=== PATIENT | female | born 1945 | race Caucasian/White ===

== ENCOUNTER 2016-12-01 12:16 | Inpatient (IN) | payer MEDICARE, OTHER ==
[2016-12-01] VITALS (17 sets, daily range): BP systolic 113–183; BP diastolic 38–73; PULSE 73–83; RESP 12–20; Ht 157.5 cm; Wt 82.7 kg
[~2016-12-01] VITALS: Ht 157.5 cm; Wt 82.7 kg
[~2016-12-01 12:16] MED LIST: IBUP400T22 PO
[2016-12-01] MEDS ORDERED: IODIXANOL LOCM 100 ML BTL ONE ×2 (13:05→14:13)
[2016-12-01] MEDS ORDERED: FENTAnyl 50 MCG/ML VIAL ONE (13:05)
[2016-12-01] MEDS ORDERED: HEPARIN 1000 UNITS/NS (A-LINE) 1,000 ML ONE (13:05)
[2016-12-01] MEDS ORDERED: MIDAZOLAM 1 MG/ML 2 ML INJ ONE (13:05)
[2016-12-01] MEDS ORDERED: LIDOCAINE 1% (MDV) 20 ML INJ ONE (13:05)
[2016-12-01] MEDS ORDERED: NITROGLYCERIN (IC) 100 MCG/ML INJ ONE (13:05)
[2016-12-01] MEDS ORDERED: HEPARIN 1000 UNITS/ML 10 ML INJ ONE (13:05)
[2016-12-01] MEDS ORDERED: VERAPAMIL 5 MG INJ ONE (13:05)
[2016-12-01] MEDS ORDERED: NIT1OI2 TD (13:36)
[2016-12-01] MEDS ORDERED: ATOR10TA65 PO (13:36)
[2016-12-01] MEDS ORDERED: HYDR-3672 PO (13:36)
[2016-12-01] MEDS ORDERED: ASPI81TA3 PO (13:36)
[2016-12-01] MEDS ORDERED: ONDA4SOL2 IV* (13:36)
[2016-12-01] MEDS ORDERED: CARV25TA79 PO (13:36)
[2016-12-01] MEDS ORDERED: LEVO125T75 PO (13:36)
[2016-12-01] MEDS ORDERED: CLOPIDOGREL 300 MG TAB ONE (14:01)
[2016-12-01] MEDS ORDERED: ASPIRIN 81 MG TAB ONE (14:01)
[2016-12-01] MEDS ORDERED: IOHEXOL 350MG/ML 50 ML BTL ONE (14:08)
[2016-12-01] MEDS ORDERED: BIVALIRUDIN 250MG /NS 50 ML 50 ML IVPB ONE (14:08)
[2016-12-01] MEDS ORDERED: SOD CHLORIDE 0.9% 1,000 ML IV SCH (14:36)
[2016-12-01] MEDS ORDERED: ONDANSETRON 4 MG INJ IV PRN (15:00)
[2016-12-01] MEDS ORDERED: hydrALAzine 20 MG INJ IV PRN (15:00)
[2016-12-01] MEDS ORDERED: morphine 2 MG INJ IV PRN (15:00)
[2016-12-01] MEDS ORDERED: ACETAMINOPHEN 325 MG TAB PO PRN (15:00)
[2016-12-01] MEDS ORDERED: HOLD all METFORMIN and METFORMIN CONTAINING medications for 48 hours post procedure. Chec XX ONE (15:00)
--- NOTE | 2016-12-01 15:12 | OPR ---
Date/Time of Note Date/Time of Note DATE: 12/01/16 TIME: 15:12 Operative Report Free Text/Dictation Procedure Date: 12/01/2016 Procedures Performed: 1)Left heart catheterization with selective left and right coronary angiography. 2)Balloon angioplasty and stenting of the mid RCA with a [place] 2.5 x 15 stent. Pre-operative Diagnosis:NSTEMI, CHF, CKD Post-operative Diagnosis:same, s/p PCI of RCA Indications:71 yo F with DM, HTN, HL, CKD, presenting with SOB and was found to have CHF and NSTEMI (trop 3). Cardiac cath for evaluation. Description of Procedure: After informed consent, the patient was brought to the cardiac catheterization lab. The procedure site was prepped and draped in usual manner. The patient was premedicated with versed 1 mg and fentanyl 25 mcg. 3mL lidocaine was injected into the left wrist. Next using the posterior wall technique, the 6/5 icelandic sheath was inserted into the left radial artery. Next using the JL3.0 and JR4, selective angiography of the left and right coronary arteries were obtained. The decision was made to proceed with PCI of the RCA. A 6 icelandic JR3.5 with side holes guide was advanced and engaged into the right coronary artery. After appropriate anticoagulation and antiplatelets were given, the PT 2 LS angioplasty wire was advanced past the lesion. Next the 2.0 X 12 balloon was used to dilate the lesion times 1 at a maximum of 10 ben. Subsequently, the Vijay 2.5 x 15 stent was advanced to the lesion and deployed at 12 ben. Next the stent was post dilated with the 2.75 X 8 noncompliant balloon times 3 at a maximum of 14 ben. Final angiography revealed YOSVANY 3 flow, no edge dissection, and appropriate stent expansion. Next all equipment was removed and hemostasis was achieved by TR band. Findings: Anatomy/Hemodynamics: Left main:luminal irregularities LAD:luminal irregularities Diagonal:luminal irregularities Circumflex:luminal irregularities Obtuse marginal:luminal irregularities RCA: mid 90% PDA:luminal irregularities PLV:luminal irregularities LV angiography:not done due to elevated LV-Ao: no gradient LVEDP: 10mmHg Contrast used: 80mL Medications used: Versed 1mg Fentanyl 50 radial cocktail including 2000 units heparin, 200 NTG, 2.5 verapamil ASA 162mg plavix 600mg angiomax bolus plus drip NTG intrasheath for spasm Equipment used: 6 icelandic JR 3.5 with side holes guide PT 2 LS angioplasty wire 2 x 12 balloon Vijay 2.5 x 15 drug eluting stent 2.75 x 8 noncompliant balloon Assessment: NSTEMI s/p PCI of mid RCA with Vij[place] 2.5 x 15 DOUG CAD Diastolic heart failure CKD DM HTN Plan: -observe in ICU -IVF at 100.hr for 5 hours. Monitor for CHF -ASA 81mg indefinitely -plavix 75mg for one year -ok for d/c in next 1-2 days depending on renal function MATTIE OWENS Dec 01, 2016 15:12
[2016-12-01] MEDS ORDERED: GLUCOSE GEL 15 GRAM TUBE PO PRN ×2 (17:00)
[2016-12-01] MEDS ORDERED: Discontinue current oral sulfonylureas (glyburide, glipizide, and/or glimepiride) prior to XX ONE (17:00)
[2016-12-01] MEDS ORDERED: DEXTROSE 50% 50 ML SYRINGE IV PRN ×2 (17:00)
[2016-12-01] MEDS ORDERED: GLUCOSE GEL 15 GRAM TUBE BUCCAL PRN (17:00)
[2016-12-01] MEDS ORDERED: GLUCAGON 1 MG INJ IM PRN (17:00)
[2016-12-01] MEDS ORDERED: HYPOGLYCEMIA PROTOCOL when Glucose is <70 mg/dL or symptomatic <90 mg/dL. XX ONE (17:00)
[2016-12-01] MEDS: INSULIN ASPART [NOVOLOG] 3 ML PEN SC SCH ×2 (18:16→22:10)
--- NOTE | 2016-12-01 20:15 | HP ---
DATE OF ADMISSION: 12/01/2016 CHIEF COMPLAINT: Non-STEMI. HISTORY OF PRESENT ILLNESS: The patient is a 71-year-old female with a past medical history of diabetes, hypertension, dyslipidemia, chronic kidney disease stage III, who presented to an outside hospital with shortness of breath and orthopnea. The patient's symptoms have been ongoing for 1 month. The patient upon admission to an outside hospital, was noted to have CHF, non- STEMI with a troponin peak at 3.2. She was seen by Dr. Kay. Video Operator at the outside hospital, [place], placed on heparin drip. The patient was then eventually transferred to [facility] where she underwent cardiac catheterization. The patient had PCI to the right coronary artery. Following the procedure, the patient was placed in recovery. Upon my evaluation of the patient at this time, she is currently stable. Denies any fevers, chills, nausea, vomiting. No shortness of breath. PAST MEDICAL HISTORY: 1. History of chronic kidney disease. 2. Dyslipidemia. 3. Hypertension. 4. Diabetes. 5. CHF. FAMILY HISTORY: Noncontributory. SOCIAL HISTORY: Does not drink, smoke, or do drugs. PAST SURGICAL HISTORY: None. REVIEW OF SYSTEMS: Fourteen review of systems conducted. Pertinent positives stated in HPI, otherwise negative. PHYSICAL EXAMINATION: VITAL SIGNS: Blood pressure 114/44, respirations 12, pulse 74, temperature 98.6. HEENT: Head is normocephalic. Pupils are reactive to light. NECK: Supple. HEART: Regular rate. LUNGS: Diminished breath sounds at the base. ABDOMEN: Soft, nontender to palpation. No rebound or guarding. EXTREMITIES: Negative for clubbing, cyanosis. No edema. DERMATOLOGIC: No rashes. MUSCULOSKELETAL: No joint effusion. NEUROLOGIC: No focal deficits. MEDICATIONS: The patient's medications have been reviewed. LABORATORY DATA: From November 30 shows a sodium 141, potassium 5.3, chloride 111, BUN 43, creatinine 1.8. White count 8.1, hemoglobin 9.7, crit of 30 and platelet count 199. ASSESSMENT AND PLAN: This is a 71-year-old female who presents with: 1. Coronary artery disease. The patient is status post cardiac catheterization with percutaneous coronary intervention to right coronary artery. Continue current medical management. Follow up with Cardiology. 2. Congestive heart failure. The patient is currently decompensated. Continue medical management. Continue diuretic therapy per Cardiology. 3. Chronic kidney disease stage 3. At this point, we will continue to monitor renal function closely. Would check urinalysis. We will continue supportive care. Renally dose medications. Avoid nephrotoxins. Monitor closely on diuretic therapy. 4. Hypothyroidism. Continue Synthroid. 5. Anemia. Monitor H and H levels. 6. . Continue statin therapy. 7. Diabetes. Continue Accu-Cheks and sliding scale. Dictated By: Cristo Swan DO /[email or web address]/bernard /Document#: [id number]
[2016-12-01] MEDS: ATORVASTATIN 40 MG TAB PO SCH (21:49)
[2016-12-02] VITALS (13 sets, daily range): BP systolic 140–174; BP diastolic 61–74; PULSE 72–82; RESP 16–18
[2016-12-02] MEDS: ACCU-CHEK XX SCH (02:00)
[2016-12-02] MEDS: LEVOTHYROXINE 125 MCG TAB PO SCH (06:09)
[2016-12-02 06:56] LABS: BASOPHILS % 0.4 % (0.0-2.0); EOSINOPHILS # 0.2 10^3/ul (0.0-0.5); EOSINOPHILS % 2.8 % (0.0-7.0); HEMATOCRIT 31.3 % (37.0-47.0); HEMOGLOBIN 9.2 g/dl (12.0-16.0); LYMPHOCYTES # 1.8 10^3/ul (0.8-2.9); LYMPHOCYTES % 21.8 % (15.0-51.0); MEAN CORPUSCULAR HEMOGLOBIN 30.6 pg (29.0-33.0); MEAN CORPUSCULAR HGB CONC 29.4 g/dl (32.0-37.0); MONOCYTE # 0.8 10^3/ul (0.3-0.9); MONOCYTES % 9.5 % (0.0-11.0); NEUTROPHILS % 65.1 % (39.0-77.0); PLATELET COUNT 218 10^3/UL (140-415); RED BLOOD COUNT 3.01 10^6/ul (4.20-5.40); RED CELL DISTRIBUTION WIDTH 13.4 % (11.5-14.5); WHITE BLOOD COUNT 8.3 10^3/ul (4.8-10.8)
[2016-12-02 07:17] LABS: CALCIUM 10.4 mg/dl (8.4-10.2); CREATININE 1.96 mg/dl (0.44-1.00); PHOSPHORUS 4.4 mg/dl (2.5-4.9)
[2016-12-02 07:25] LABS: POTASSIUM 5.2 mmol/L (3.5-5.1)
[2016-12-02] MEDS: ASPIRIN 81 MG TAB PO SCH (08:39)
[2016-12-02] MEDS: INSULIN ASPART [NOVOLOG] 3 ML PEN SC SCH ×4 (08:39→21:15)
[2016-12-02] MEDS: CLOPIDOGREL 75 MG TAB PO SCH (08:41)
--- NOTE | 2016-12-02 10:11 | PN ---
DATE: SUBJECTIVE DATA: The patient is currently stable. Is complaining about pain in her right foot, which is described as neuropathy per patient's daughter. No other events noted. No hemoptysis, hematemesis, hematochezia. OBJECTIVE DATA: VITAL SIGNS: Blood pressure is 150/67, respirations 16, pulse 82, temperature 97.4. HEENT: Head is normocephalic. NECK: Supple. HEART: Regular rate. LUNGS: Showed diminished breath sounds at the base. ABDOMEN: Soft. Nontender to palpation. No rebound or guarding. EXTREMITIES: Negative for clubbing, cyanosis. No edema. DERMATOLOGIC: Clean. No rashes. MUSCULOSKELETAL: No joint effusion. NEUROLOGIC: No change in exam. MEDICATIONS: Reviewed. LABORATORY AND DIAGNOSTIC DATA: Sodium 138, potassium 5.2, chloride 114, BUN 44, creatinine 1.96. White count 8.3, hemoglobin 9.2, crit 31.3, platelet count of 218. ASSESSMENT AND PLAN: 1. Coronary artery disease. Patient is post percutaneous coronary intervention to the right coronary artery. At this point, continue current treatment plan. Continue current medical management. 2. Congestive heart failure. Continue current medical management. Follow up with Cardiology. 3. Chronic kidney disease, stage 3, with previous baseline creatinine around 2.0 mg/dL. The patient appears to be at baseline. We will continue current treatment, supportive care. Renally dose all meds. 4. Hypokalemia, mild. The patient will be placed on a renal diet. We will monitor. 5. Diabetes. Continue Accu-Cheks, insulin sliding scale. 6. Dyslipidemia. Continue statin therapy. 7. Anemia. We will monitor H and H levels. 8. Hypertension. Continue current blood pressure regimen. 9. Neuropathy. Continue current medical management. Consider course of Neurontin or Lyrica. 10. Debility. Continue physical therapy. Dictated By: Cristo Swan DO /jackie/alena /Document#: [id number]
--- NOTE | 2016-12-02 14:40 | CONS ---
Date/Time of Note Date/Time of Note DATE: 12/02/16 TIME: 14:36 Assessment/Plan Assessment/Plan Chief Complaint/Hosp Course Assessment: NSTEMI s/p PCI of mid RCA with [place] 2.5 x 15 DOUG CAD Diastolic heart failure CKD: renal function appears near baseline DM HTN Recommendations: -ASA 81mg indefinitely -plavix 75mg for one year -statin -carvedilol -stable for discharge from cardiac standpoint Problems: Consultation Date/Type/Reason Admit Date/Time Dec 01, 2016 at 20:26 Initial Consult Date Type of Consultation: Cardiology 24 HR Interval Summary Free Text/Dictation No acute events. No chest pain or shortness of breath. Left radial artery access site intact. Detailed Summary Additional Comments 14 point review of systems without changes. Exam/Review of Systems Vital Signs Vitals Vital Signs Date Time Temp Pulse Resp B/P Pulse Ox O2 Delivery O2 Flow Rate FiO2 12/02/16 12:44 79 12/02/16 11:40 98.2 16 174/74 97 12/01/16 19:13 Room Air Intake and Output 12/01/16 12/01/16 12/02/16 15:00 23:00 07:00 Intake Total 250 ml 400 ml Output Total 300 ml 400 ml Balance -50 ml 0 ml Exam Constitutional: alert, well developed Psych: nl mood/affect, no complaints Head: atraumatic, normocephalic Eyes: nl conjunctiva, nl lids ENMT: nl external ears & nose, nl nasal mucosa & septum Neck: non-tender, supple, No jvd Respiratory: clear to auscultation, normal air movement Cardiovascular: regular rate and rhythm Gastrointestinal: non-tender, soft Musculoskeletal: nl extremities to inspection Extremities: No clubbing, No cyanosis, No edema Neurological: nl mental status, nl speech Results Result Diagram: 12/02/16 0630 12/02/16 0630 Results 24 hrs Laboratory Tests Test 12/01/16 17:11 12/01/16 21:56 12/02/16 01:38 12/02/16 06:30 Bedside Glucose 200 205 208 White Blood Count 8.3 Red Blood Count 3.01 L Hemoglobin 9.2 L Hematocrit 31.3 L Mean Corpuscular Volume 104.0 H Mean Corpuscular Hemoglobin 30.6 Mean Corpuscular Hemoglobin Concent 29.4 L Red Cell Distribution Width 13.4 Platelet Count 218 Mean Platelet Volume 12.0 H Neutrophils % 65.1 Lymphocytes % 21.8 Monocytes % 9.5 Eosinophils % 2.8 Basophils % 0.4 Nucleated Red Blood Cells % 0.0 Neutrophils # (Manual) 5.4 Lymphocytes # 1.8 Monocytes # 0.8 Eosinophils # 0.2 Basophils # 0.0 Nucleated Red Blood Cells # 0.0 Sodium Level 138 Potassium Level 5.2 H Chloride Level 114 H Carbon Dioxide Level 19 L Anion Gap 10 Blood Urea Nitrogen 44 H Creatinine 1.96 H Glucose Level 199 Calcium Level 10.4 H Phosphorus Level 4.4 Magnesium Level 2.0 Test 12/02/16 08:01 12/02/16 12:17 Bedside Glucose 183 245 H Medications Medications Current Medications Acetaminophen (Tylenol Tab) 650 mg Q4H PRN PO NON-CARDIAC PAIN LEVEL (1-3); Start 12/01/16 at 15:00 Morphine Sulfate (morphine) 2 mg Q2H PRN IV FOR NON CARDIAC PAIN (4-10); Start 12/01/16 at 15:00 Ondansetron HCl (Zofran Inj) 4 mg Q4H PRN IV NAUSEA AND/OR VOMITING; Start 03/07 at 15:00 Aspirin (Aspirin) 81 mg DAILY PO Last administered on 12/02/16 08:39; Admin Dose 81 MG; Start 12/02/16 at 09:00 Clopidogrel Bisulfate (plaVIX) 75 mg DAILY PO Last administered on 12/02/16 08 :41; Admin Dose 75 MG; Start 12/02/16 at 09:00 Atorvastatin Calcium (Lipitor) 40 mg HS PO Last administered on 12/01/16 21:49 ; Admin Dose 40 MG; Start 12/01/16 at 21:00 Carvedilol (Coreg) 12.5 mg BID PO Last administered on 12/02/16 08:40; Admin Dose 12.5 MG; Start 12/01/16 at 21:00 Hydralazine HCl (Apresoline) 10 mg Q6H PRN IV SBP>160; Start 12/01/16 at 15:00 Hydralazine HCl (Apresoline) 50 mg Q8 PO Last administered on 12/02/16 06:09; Admin Dose 50 MG; Start 12/01/16 at 22:00 Diagnostic Test (Pha) (Accu-Chek) 1 ea 02 XX ; Start 12/02/16 at 02:00 Miscellaneous Information 1 ea NOTE XX ; Start 12/01/16 at 17:00 Glucose (Glutose) 15 gm Q15M PRN PO DECREASED GLUCOSE; Start 12/01/16 at 17:00 Glucose (Glutose) 22.5 gm Q15M PRN PO DECREASED GLUCOSE; Start 12/01/16 at 17: 00 Dextrose (D50w Syringe) 25 ml Q15M PRN IV DECREASED GLUCOSE; Start 12/01/16 at 17:00 Dextrose (D50w Syringe) 50 ml Q15M PRN IV DECREASED GLUCOSE; Start 12/01/16 at 17:00 Glucagon (Glucagen) 1 mg Q15M PRN IM DECREASED GLUCOSE; Start 12/01/16 at 17:00 Glucose (Glutose) 15 gm Q15M PRN BUCCAL DECREASED GLUCOSE; Start 12/01/16 at 17 :00 MANPREET SYED MD Dec 02, 2016 14:40
[2016-12-02] MEDS: ATORVASTATIN 40 MG TAB PO SCH (21:06)
[2016-12-02] MEDS ORDERED: INSULIN GLARGINE [LANtus] 3 ML PEN SC ONE (22:00)
[2016-12-03] VITALS (12 sets, daily range): BP systolic 126–146; BP diastolic 55–77; PULSE 68–78; RESP 16–19
[2016-12-03] MEDS: ACCU-CHEK XX SCH (02:00)
[2016-12-03] MEDS: LEVOTHYROXINE 125 MCG TAB PO SCH (06:07)
[2016-12-03 07:24] LABS: BASOPHILS % 0.2 % (0.0-2.0); EOSINOPHILS # 0.4 10^3/ul (0.0-0.5); EOSINOPHILS % 5.2 % (0.0-7.0); HEMATOCRIT 31.5 % (37.0-47.0); HEMOGLOBIN 9.9 g/dl (12.0-16.0); LYMPHOCYTES # 1.6 10^3/ul (0.8-2.9); MEAN CORPUSCULAR HEMOGLOBIN 32.7 pg (29.0-33.0); MEAN CORPUSCULAR HGB CONC 31.4 g/dl (32.0-37.0); MEAN PLATELET VOLUME 12.4 fl (7.4-10.4); MONOCYTE # 0.8 10^3/ul (0.3-0.9); MONOCYTES % 9.2 % (0.0-11.0); NEUTROPHIL # 5.5 10^3/ul (1.6-7.5); NEUTROPHILS % 66.2 % (39.0-77.0); PLATELET COUNT 221 10^3/UL (140-415); RED BLOOD COUNT 3.03 10^6/ul (4.20-5.40); RED CELL DISTRIBUTION WIDTH 13.1 % (11.5-14.5); WHITE BLOOD COUNT 8.3 10^3/ul (4.8-10.8)
[2016-12-03 07:54] LABS: CALCIUM 10.1 mg/dl (8.4-10.2); CREATININE 2.28 mg/dl (0.44-1.00); MAGNESIUM 2.1 mg/dl (1.7-2.5); PHOSPHORUS 4.2 mg/dl (2.5-4.9); POTASSIUM 5.2 mmol/L (3.5-5.1)
[2016-12-03] MEDS ORDERED: INSULIN GLARGINE [LANtus] 3 ML PEN SC ONE (09:00)
[2016-12-03] MEDS: Insulin NOVOLOG SS MODERATE Algorithm (SS with meals and bedtime) SC SCH ×4 (09:01→20:53)
[2016-12-03] MEDS: ASPIRIN 81 MG TAB PO SCH (09:17)
[2016-12-03] MEDS: CLOPIDOGREL 75 MG TAB PO SCH (09:19)
--- NOTE | 2016-12-03 09:19 | PN ---
DATE: 12/03/2016 SUBJECTIVE DATA: The patient is clinically stable. No events overnight. No fevers, chills, nausea, or vomiting. The patient's glucose levels were elevated. Her Lantus was adjusted. No other events noted. OBJECTIVE DATA: VITAL SIGNS: Blood pressure is 129/60, respirations 19, pulse 73, temperature 98.3. HEENT: Head is normocephalic. NECK: Supple. HEART: Regular rate. LUNGS: Diminished breath sounds at the base. ABDOMEN: Soft, nontender to palpation. No rebound or guarding. EXTREMITIES: Negative for clubbing, cyanosis. No edema. DERMATOLOGIC: Clean. No rashes. MUSCULOSKELETAL: No joint effusion. NEUROLOGIC: No change in exam. MEDICATIONS: Reviewed. LABORATORY AND DIAGNOSTIC DATA: Sodium 137, potassium 5.2, chloride 113, BUN 45, creatinine 2.28. White count 8.3, hemoglobin 9.9, hematocrit 31.5, platelet count is 221. ASSESSMENT AND PLAN: 1. Coronary artery disease. The patient is status post percutaneous coronary intervention to right coronary artery. At this point, the patient is currently stable. Continue current medical management. Follow up with Cardiology. 2. Congestive heart failure, improving. Continue current treatment plan. 3. Chronic kidney disease stage 3, with previous baseline creatinine of 2.0 mg/dL. The patient's creatinine is elevated today at 2.3 mg/dL. This may be just hemodynamics fluctuations. Low suspicion for contrast associated nephropathy. However, will continue to monitor. Repeat BMP. 4. Mild hypokalemia. Will continue low potassium diet. 5. Diabetes. Continue Lantus insulin sliding scale. 6. Dyslipidemia. Continue statin therapy. 7. Anemia. Continue to monitor H and H levels. 8. Hypertension. Continue current blood pressure regimen. 9. Neuropathy. Continue to monitor. 10. Debility. Continue physical therapy. 11. Disposition. Possible discharge later today, if renal function remains stable. Dictated By: Cristo Swan DO /jackie/stephon /Document#: [id number]
--- NOTE | 2016-12-03 16:01 | CONS ---
Date/Time of Note Date/Time of Note DATE: 12/03/16 TIME: 15:59 Assessment/Plan Assessment/Plan Chief Complaint/Hosp Course Assessment: NSTEMI s/p PCI of mid RCA with [place] 2.5 x 15 DOUG CAD Diastolic heart failure CKD: Cr up today, monitor renal function, nephrology follow up DM HTN Recommendations: -ASA 81mg indefinitely -plavix 75mg for one year -statin -carvedilol Problems: Consultation Date/Type/Reason Admit Date/Time Dec 01, 2016 at 20:26 Type of Consultation: Cardiology 24 HR Interval Summary Free Text/Dictation Denies chest pain or shortness of breath. Cr up to 2.28 today. Detailed Summary Additional Comments 14 point review of systems without changes. Exam/Review of Systems Vital Signs Vitals Vital Signs Date Time Temp Pulse Resp B/P Pulse Ox O2 Delivery O2 Flow Rate FiO2 12/03/16 15:20 98.2 75 19 146/77 96 12/01/16 19:13 Room Air Intake and Output 12/02/16 12/02/16 12/03/16 15:00 23:00 07:00 Intake Total 800 ml 600 ml Balance 800 ml 600 ml Exam Constitutional: alert, well developed Psych: nl mood/affect, no complaints Head: atraumatic, normocephalic Eyes: nl conjunctiva, nl lids ENMT: nl external ears & nose, nl nasal mucosa & septum Neck: non-tender, supple, No jvd Respiratory: clear to auscultation, normal air movement Cardiovascular: regular rate and rhythm Gastrointestinal: non-tender, soft Musculoskeletal: nl extremities to inspection Extremities: No clubbing, No cyanosis, No edema Neurological: nl mental status, nl speech Results Result Diagram: 12/03/16 0606 12/03/16 0606 Results 24 hrs Laboratory Tests Test 12/02/16 17:31 12/02/16 18:30 12/02/16 21:03 12/02/16 22:29 Bedside Glucose 230 H 306 H 284 H Urine Random Creatinine 76.28 Urine Random Sodium 51 Urine Total Protein 444.0 H Test 12/03/16 02:46 12/03/16 06:06 12/03/16 07:58 12/03/16 12:22 Bedside Glucose 275 H 192 231 H White Blood Count 8.3 Red Blood Count 3.03 L Hemoglobin 9.9 L Hematocrit 31.5 L Mean Corpuscular Volume 104.0 H Mean Corpuscular Hemoglobin 32.7 Mean Corpuscular Hemoglobin Concent 31.4 L Red Cell Distribution Width 13.1 Platelet Count 221 Mean Platelet Volume 12.4 H Neutrophils % 66.2 Lymphocytes % 19.0 Monocytes % 9.2 Eosinophils % 5.2 Basophils % 0.2 Nucleated Red Blood Cells % 0.0 Neutrophils # 5.5 Lymphocytes # 1.6 Monocytes # 0.8 Eosinophils # 0.4 Basophils # 0.0 Nucleated Red Blood Cells # 0.0 Sodium Level 137 Potassium Level 5.2 H Chloride Level 113 H Carbon Dioxide Level 18 L Anion Gap 11 Blood Urea Nitrogen 45 H Creatinine 2.28 H Glucose Level 206 Calcium Level 10.1 Phosphorus Level 4.2 Magnesium Level 2.1 Medications Medications Current Medications Acetaminophen (Tylenol Tab) 650 mg Q4H PRN PO NON-CARDIAC PAIN LEVEL (1-3); Start 12/01/16 at 15:00 Morphine Sulfate (morphine) 2 mg Q2H PRN IV FOR NON CARDIAC PAIN (4-10); Start 12/01/16 at 15:00 Ondansetron HCl (Zofran Inj) 4 mg Q4H PRN IV NAUSEA AND/OR VOMITING; Start 03/07 at 15:00 Aspirin (Aspirin) 81 mg DAILY PO Last administered on 12/03/16 09:17; Admin Dose 81 MG; Start 12/02/16 at 09:00 Clopidogrel Bisulfate (plaVIX) 75 mg DAILY PO Last administered on 12/03/16 09 :19; Admin Dose 75 MG; Start 12/02/16 at 09:00 Atorvastatin Calcium (Lipitor) 40 mg HS PO Last administered on 12/02/16 21:06 ; Admin Dose 40 MG; Start 12/01/16 at 21:00 Carvedilol (Coreg) 12.5 mg BID PO Last administered on 12/03/16 09:18; Admin Dose 12.5 MG; Start 12/01/16 at 21:00 Hydralazine HCl (Apresoline) 10 mg Q6H PRN IV SBP>160; Start 12/01/16 at 15:00 Hydralazine HCl (Apresoline) 50 mg Q8 PO Last administered on 12/03/16 15:09; Admin Dose 50 MG; Start 12/01/16 at 22:00 Diagnostic Test (Pha) (Accu-Chek) 1 ea 02 XX Last administered on 12/03/16t 02: 00; Admin Dose 1 EA; Start 12/02/16 at 02:00 Miscellaneous Information 1 ea NOTE XX ; Start 12/01/16 at 17:00 Glucose (Glutose) 15 gm Q15M PRN PO DECREASED GLUCOSE; Start 12/01/16 at 17:00 Glucose (Glutose) 22.5 gm Q15M PRN PO DECREASED GLUCOSE; Start 12/01/16 at 17: 00 Dextrose (D50w Syringe) 25 ml Q15M PRN IV DECREASED GLUCOSE; Start 12/01/16 at 17:00 Dextrose (D50w Syringe) 50 ml Q15M PRN IV DECREASED GLUCOSE; Start 12/01/16 at 17:00 Glucagon (Glucagen) 1 mg Q15M PRN IM DECREASED GLUCOSE; Start 12/01/16 at 17:00 Glucose (Glutose) 15 gm Q15M PRN BUCCAL DECREASED GLUCOSE; Start 12/01/16 at 17 :00 MANPREET SYED MD Dec 03, 2016 16:01
[2016-12-03 17:06] LABS: CALCIUM 10.2 mg/dl (8.4-10.2); CREATININE 2.36 mg/dl (0.44-1.00); POTASSIUM 5.2 mmol/L (3.5-5.1)
[2016-12-03] MEDS: ATORVASTATIN 40 MG TAB PO SCH (20:52)
[2016-12-03] MEDS ORDERED: INSULIN GLARGINE [LANtus] 3 ML PEN SC SCH (21:30)
[2016-12-04] VITALS (8 sets, daily range): BP systolic 126–152; BP diastolic 55–66; PULSE 68–76; RESP 17–19
[2016-12-04] MEDS: ACCU-CHEK XX SCH (02:00)
[2016-12-04] MEDS: LEVOTHYROXINE 125 MCG TAB PO SCH (06:09)
[2016-12-04] MEDS: Insulin NOVOLOG SS MODERATE Algorithm (SS with meals and bedtime) SC SCH ×2 (07:55→11:28)
[2016-12-04 08:25] LABS: CALCIUM 9.9 mg/dl (8.4-10.2); CREATININE 2.31 mg/dl (0.44-1.00); MAGNESIUM 2.2 mg/dl (1.7-2.5); PHOSPHORUS 4.4 mg/dl (2.5-4.9); POTASSIUM 4.9 mmol/L (3.5-5.1)
[2016-12-04] MEDS: CLOPIDOGREL 75 MG TAB PO SCH (09:14)
[2016-12-04] MEDS: ASPIRIN 81 MG TAB PO SCH (09:14)
--- NOTE | 2016-12-04 16:15 | DS ---
DATE OF ADMISSION: 12/01/2016 DATE OF DISCHARGE: 12/04/2016 HOSPITAL COURSE: This is a 71-year-old female with a past medical history of diabetes, hypertension, dyslipidemia, CKD stage 3, who presented to an outside hospital with shortness of breath, orthopnea. Patient's symptoms were ongoing for several days. The patient upon arrival was ruled in for a NSTEMI. He was then transferred to [facility] where the patient underwent cardiac cath with PCI to right coronary artery. Following the surgery, patient was observed for any signs of contrast nephropathy. The patient's renal function declined; however, subsequently stabilized and is near previous baseline around 2 to 2.2 mg/dL per patient's family. Patient currently at this time is stable. No acute distress and will be discharged home where she will follow up with her primary care physician and her sausage smoker in 1 week's time. FINAL DIAGNOSES: 1. Coronary artery disease, status post percutaneous coronary intervention to right coronary artery. 2. Congestive heart failure, improved. 3. Chronic kidney disease, stage 3. The patient's renal function is currently stable. No evidence of contrast-associated nephropathy. 4. Mild hyperkalemia, resolved. 5. Diabetes. 6. Dyslipidemia. 7. Anemia. 8. Hypertension. 9. Neuropathy. 10. Debility. DISCHARGE MEDICATIONS: 1. Patient will continue her home insulin regimen. 2. Patient will be on aspirin. 3. Lipitor. 4. Coreg. 5. Plavix. 6. As well as her blood pressure medications of hydralazine. Please note, I spoke with the patient's family and daughter, informing her that she needs to be on antiplatelets and her cholesterol medications and she is to follow up with sausage smoker. FINAL MEDICATIONS: Please see reconciliation list. Please note, I spent over 40 minutes' time preparing patient's discharge. DISCHARGE CONDITION: At the time of discharge, the patient is stable, in no acute distress. Dictated By: Cristo Swan DO /jackie/alena /Document#: [id number]
[2016-12-04 16:51] LABS: MICROALBUMIN 161.1 mg/dL
== END 2016-12-04 15:20 | disposition home or self-care (01) | DRG 247 ==
LOC: CCL 12:16 → TEL 20:26
PROVIDERS: ADMIT Internal Medicine Interventional Cardiology; ATTEND Internal Medicine Interventional Cardiology
PROC: B211YZZ Fluoroscopy of Multiple Coronary Arteries using Other Contrast (ICD-10-PCS; 2016-12-01)
PROC: 027034Z Dilation of Coronary Artery, One Artery with Drug-eluting Intraluminal Device, Percutaneous Approach (ICD-10-PCS; principal; 2016-12-01 13:30)
PROC: 4A023N7 Measurement of Cardiac Sampling and Pressure, Left Heart, Percutaneous Approach (ICD-10-PCS; 2016-12-01 13:30)
DX: I21.4 Non-ST elevation (NSTEMI) myocardial infarction (principal); I50.30 Unspecified diastolic (congestive) heart failure; I11.0 Hypertensive heart disease with heart failure; E11.22 Type 2 diabetes mellitus with diabetic chronic kidney disease; I13.0 Hypertensive heart and chronic kidney disease with heart failure and stage 1 through stage 4 chronic kidney disease, or unspecified chronic kidney disease; E11.42 Type 2 diabetes mellitus with diabetic polyneuropathy; I25.10 Atherosclerotic heart disease of native coronary artery without angina pectoris; N18.3 Chronic kidney disease, stage 3 (moderate); E78.5 Hyperlipidemia, unspecified; E03.9 Hypothyroidism, unspecified; D64.9 Anemia, unspecified; E87.6 Hypokalemia
CPT/HCPCS: 80048; 81003; 82043; 82962; 83735; 84100; 84155; 84300; 85025; 93458; 97110; 97116; 97162; 97530; C1725; C1887; C9600; J0360; J0583; J1644; J1815; J2250; J3010; Q9967